=== PATIENT | female | born 1965 | race Caucasian/White ===

== ENCOUNTER 2020-07-10 10:37 | Emergency (ER) | payer OTHER ==
[2020-07-10 10:43] VITALS: BP 120/77; PULSE 77; TEMP 97.2; BMI 25.7
[2020-07-10] MEDS ORDERED: ONDANSETRON 4 MG/2 ML VIAL IVPUSH ONE (11:19)
[2020-07-10] MEDS ORDERED: SODIUM CHLORIDE 0.9% 500 ML INFUS.BAG IV ONE (11:19)
[2020-07-10] MEDS ORDERED: ONDANSETRON 4 MG/2 ML VIAL ONE (11:51)
[2020-07-10 12:20] LABS: BASO % 0.4 % (0-2.0); EOS % 0.1 % (0-4.5); HEMATOCRIT 43.9 % (32.4-45.2); HEMOGLOBIN 14.8 GM/dL (10.7-15.3); LYMPH % 17.3 % (8-40); MCH 31.2 pg (25.7-33.7); MCHC 33.8 g/dl (32.0-36.0); MEAN CELL VOLUME 92.4 fl (80-96); MEAN PLT VOLUME 8.6 fl (7.5-11.1); NEUT % 77.2 % (42.8-82.8); PLATELET COUNT 257 K/MM3 (134-434); RBC 4.75 M/mm3 (3.60-5.2); RDW 13.5 % (11.6-15.6); WHITE BLOOD COUNT 7.2 K/mm3 (4.0-10.0)
[2020-07-10 12:20] LABS: URINE APPEARANCE CLEAR; URINE BILIRUBIN NEGATIVE (NEGATIVE); URINE COLOR YELLOW; URINE GLUCOSE (UA) NEGATIVE (NEGATIVE); URINE KETONE TRACE (NEGATIVE); URINE LEUK ESTERASE NEGATIVE (NEGATIVE); URINE NITRITE NEGATIVE (NEGATIVE); URINE PROTEIN NEGATIVE (NEGATIVE); URINE UROBILINOGEN 0.2 mg/dL (0.2-1.0)
[2020-07-10 12:36] LABS: INR 1.08 (0.83-1.09)
[2020-07-10 12:38] LABS: ACTIVATED PTT 30.1 SECONDS (25.2-36.5)
[2020-07-10 12:41] LABS: POTASSIUM 3.7 mmol/L (3.5-5.1)
[2020-07-10 12:43] LABS: CALCIUM 9.8 mg/dL (8.5-10.1)
[2020-07-10 12:44] LABS: ALBUMIN 4.3 g/dl (3.4-5.0); BLOOD UREA NITROGEN 9.3 mg/dL (7-18)
[2020-07-10 12:47] LABS: CREATININE 0.8 mg/dL (0.55-1.3)
[2020-07-10 12:48] LABS: BILIRUBIN,TOTAL 0.8 mg/dL (0.2-1)
[2020-07-10 12:49] LABS: TOT PROT 7.8 g/dl (6.4-8.2)
== END 2020-07-10 14:27 | disposition home or self-care (01) ==
LOC: JER 10:37
PROC: 3E033GC Introduction of Other Therapeutic Substance into Peripheral Vein, Percutaneous Approach (ICD-10-PCS; principal; 2020-07-10)
DX: R05 Cough (principal); R11.0 Nausea; R53.83 Other fatigue
CPT/HCPCS: 36415; 71046-TC-FY; 80053; 81003; 85025; 85610; 85730; 87086; 99284-25; C9803; U0003